=== PATIENT | male | born 1965 | race Hispanic/Latino ===

== ENCOUNTER 2016-07-31 19:29 | Observation (INO) | payer MEDICAID ==
[2016-07-31 19:50] VITALS: BP 121/76; PULSE 74; RESP 16; TEMP 98.2; O2SAT 100
--- NOTE | 2016-07-31 21:14 | ED PDOC ---
HPI: Psych/Substance Abuse Time Seen by Provider: 07/31/16 20:05 Chief Complaint (Nursing): Psychiatric Evaluation Chief Complaint (Provider): SI/HI History Per: Patient History/Exam Limitations: no limitations Onset/Duration Of Symptoms: Days (x4 months), Worse Since (today) Current Symptoms Are (Timing): Still Present Associated Symptoms: Suicidal Thoughts, Other (homicidal thoughts, no plan). denies: Suicidal Plan Involuntary Hold By: None Additional Complaint(s): Reji Espinal is a 50 year old male, with a psychiatric history inclusive of anxiety, delusion disorder and asperger syndrome per previous history, who self- presents to the ED on 07/31/16 for the evaluation of both suicidal and homicidal ideation that the patient reports he has experienced x4 months but became acutely worse today. Patient denies plan but reports feeling as if he is under constant surveillance. He admits a noncompliance with his medications but is not aware of any official psychiatric diagnoses. Denies alcohol/drug use. PMD: none Past Medical History Reviewed: Historical Data, Nursing Documentation, Vital Signs Vital Signs: Last Vital Signs Temp 98.2 F 07/31/16 19:45 Pulse 74 07/31/16 19:45 Resp 16 07/31/16 19:45 BP 121/76 07/31/16 19:45 Pulse Ox 100 07/31/16 19:45 - Medical History PMH: Anxiety, HTN (untreated) Denies: Diabetes, Hepatitis, HIV, Chronic Kidney Disease, Seizures, Sexually Transmitted Disease Other PMH: delusion disorder, asperger's disorder - Surgical History Surgical History: No Surg Hx - Family History Family History: States: Unknown Family Hx - Social History Alcohol: None Drugs: Denies - Home Medications Home Medications: Ambulatory Orders Medication Instructions Recorded ALPRAZolam [Xanax] 0.25 mg PO Q8 PRN #0 tab 06/28/16 Aspirin [Ecotrin] 81 mg PO DAILY tabec 06/28/16 Nicotine 21 mg/24 hr [Nicoderm Cq] 1 patch TD DAILY #28 patch 06/28/16 clonazePAM [Klonopin] 0.5 mg PO HS #30 tab 06/28/16 risperiDONE [RisperDAL] 0.5 mg PO BID #60 tab 06/28/16 - Allergies Allergies/Adverse Reactions: Allergies Allergy/AdvReac Type Severity Reaction Status Date / Time No Known Allergies Allergy Verified 07/31/16 19:44 Review of Systems ROS Statement: Except As Marked, All Systems Reviewed And Found Negative Psych: Positive for: Psychosis (paranoia (feels that he is under constant surveillance)), Suicidal ideation (no plan), Other (homicidal ideaiton, no plan) Physical Exam - Reviewed Nursing Documentation Reviewed: Yes Vital Signs Reviewed: Yes - Physical Exam Appears: Positive for: Non-toxic, In Acute Distress (acute psychiatric distress) Head Exam: Positive for: ATRAUMATIC, NORMOCEPHALIC Skin: Positive for: Normal Color, Warm, Dry Eye Exam: Positive for: Normal appearance, PERRL Cardiovascular/Chest: Positive for: Regular Rate, Rhythm. Negative for: Murmur Respiratory: Positive for: Normal Breath Sounds. Negative for: Respiratory Distress Neurologic/Psych: Positive for: Alert, Oriented, Mood/Affect (very agitated/ uncooperative) - Laboratory Results Result Diagrams: 07/31/16 21:15 07/31/16 21:15 - ECG O2 Sat by Pulse Oximetry: 100 (RA) Pulse Ox Interpretation: Normal Medical Decision Making Medical Decision Makin:05 Initial Impression: suicidal/homicidal ideation As patient's agitation presents a danger to both himself and ED staff patient will be placed in 4 point restraints and be given both Ativan 2mg IM and Haldol 5mg IM for relief of acute psychiatric distress. 1:1 Observation placed. Initial Plan: * Labs * Acetaminophen * Salicylate * Alcohol Serum * Urinalysis * Urine Drug Screen * Reevaluation 20:45 Patient is now calm and sleeping comfortably in ED. Physical restraints have been removed. 22:03 Patient will be placed into ED Observation secondary to administered medications. 2355: Patient seen and evaluated by crisis and will be discharged in the AM. Diagnosis is bipolar disorder as per Dr. Akbar. 0247: Patient feels better and will be discharged home at this time. stable gait. pt states feels fine. Scribe Attestation: Documented by Vandana Khan and Renée Valenzuela acting as scribes for Pam Salgado MD. Provider Scribe Attestation: All medical record entries made by the Scribe were at my direction and personally dictated by me. I have reviewed the chart and agree that the record accurately reflects my personal performance of the history, physical exam, medical decision making, and the department course for this patient. I have also personally directed, reviewed, and agree with the discharge instructions and disposition. ED OBSERVATION Date of observation admission: 07/31/16 Time of observation admission: 22:03 - Observation admission statement Patient is being placed in observation because:: Secondary to administered antipsychotic medications. - Goals of Observation Goals of observation are:: Pending eventual Crisis Evaluation, reevaluation and final disposition. Disposition - Clinical Impression Clinical Impression: Bipolar disorder - Patient ED Disposition Is Patient to be Admitted: No Counseled Patient/Family Regarding: Studies Performed, Diagnosis, Need For Followup - Disposition Disposition: Routine/Home Disposition Time: 23:55 Condition: GOOD
[2016-07-31 21:34] LABS: BASO # 0.1 K/uL (0.0-0.2); EOS # 0.3 K/uL (0.0-0.7); EOS % 4.2 % (0.0-4.0); HEMATOCRIT 45.9 % (35.0-51.0); LYMPH # 2.7 K/uL (1.0-4.3); LYMPH % 34.1 % (20.0-40.0); MEAN CELL VOLUME 98.3 fl (80.0-94.0); MEAN CORPUSCULAR HEMOGLOBIN 32.6 pg (27.0-31.0); MEAN CORPUSCULAR HGB CONC 33.2 g/dL (33.0-37.0); MEAN PLATELET VOLUME 7.1 fl (7.2-11.7); MONO % 12.6 % (0.0-10.0); NEUT # 3.7 K/uL (1.8-7.0); NEUT % 48.1 % (50.0-75.0); NRBC % 0.1 % (0.0-0.0); RED CELL DISTRIBUTION WIDTH 13.1 % (11.5-14.5); WHITE BLOOD COUNT 7.8 K/uL (4.8-10.8)
[2016-07-31 21:52] LABS: RBC URINE < 1 /hpf (0-3); URINE BILIRUBIN NEGATIVE (NEGATIVE); URINE BLOOD NEGATIVE (NEGATIVE); URINE COLOR STRAW (YELLOW); URINE GLUCOSE (UA) NEG (Normal); URINE KETONE NEGATIVE (NEGATIVE); URINE LEUKOCYTE ESTERASE NEG Leu/uL (Negative); URINE PROTEIN NEGATIVE (NEGATIVE); URINE UROBILINOGEN 0.2-1.0 mg/dL (0.2-1.0); WBC URINE < 1 /hpf (0-5)
[2016-07-31 21:59] LABS: ALB/GLOB RATIO 1.5 (1.0-2.1); ALKALINE PHOSPHATASE 52 U/L (38-126); ALT/SGPT 32 U/L (21-72); AST/SGOT 40 U/L (17-59); BILIRUBIN,TOTAL 0.4 mg/dl (0.2-1.3); BLOOD UREA NITROGEN 15 mg/dl (9-20); CALCIUM 9.2 mg/dL (8.4-10.2); CARBON DIOXIDE 25 mmol/L (22-30); CHLORIDE 105 mmol/L (98-107); GFR AFRICAN-AMERICAN > 60; GLUCOSE,RANDOM 93 mg/dL (75-110); POTASSIUM 4.1 MMOL/L (3.6-5.0); SODIUM 144 mmol/l (132-148); TOTAL PROTEIN 6.4 G/DL (6.3-8.2)
[2016-07-31 22:36] LABS: ALCOHOL SERUM 143 mg/dl (0-10)
== END 2016-08-01 02:42 | disposition home or self-care (01) ==
LOC: H.ER 19:29 → H.EROBSV 20:40
PROVIDERS: ADMIT Emergency Medicine; ATTEND Emergency Medicine
DX: F31.9 Bipolar disorder, unspecified (principal); F84.5 Asperger's syndrome; I10 Essential (primary) hypertension; R45.850 Homicidal ideations; R45.851 Suicidal ideations; Z78.1 Physical restraint status; F22 Delusional disorders; F41.9 Anxiety disorder, unspecified

== ENCOUNTER 2017-05-26 23:31 | Emergency (ER) | payer MEDICAID ==
[2017-05-27 00:43] VITALS: BP 133/85; PULSE 90; RESP 16; TEMP 98.1; O2SAT 96
== END 2017-05-27 00:50 | disposition left against medical advice (07) ==
LOC: H.ER 23:31
DX: Z02.89 Encounter for other administrative examinations (principal)

== ENCOUNTER 2017-06-17 07:04 | Inpatient (IN) | payer MEDICAID, OTHER ==
--- NOTE | 2017-06-17 07:49 | ED PDOC ---
HPI: Psych/Substance Abuse Time Seen by Provider: 06/17/17 07:28 Chief Complaint (Nursing): Psychiatric Evaluation Chief Complaint (Provider): I need to sleep History Per: Patient History/Exam Limitations: no limitations Onset/Duration Of Symptoms: Gradual Current Symptoms Are (Timing): Still Present Modifying Factor(s): Alcohol Severity: Moderate Associated Symptoms: Anxiety, Paranoia Additional Complaint(s): 51yo male c/o inability to sleep, racing thoughts, wants "check himself in". Admits to alcohol use last drink last night. Denies suicidal or homicidal thoughts. Past Medical History Reviewed: Historical Data, Nursing Documentation, Vital Signs Vital Signs: Last Vital Signs Temp 98.1 F 06/17/17 07:34 Pulse 98 H 06/17/17 07:34 Resp 16 06/17/17 07:34 BP 152/93 H 06/17/17 07:34 Pulse Ox 97 06/17/17 07:34 - Medical History PMH: Anxiety, HTN (untreated) Denies: Diabetes, Hepatitis, HIV, Chronic Kidney Disease, Seizures, Sexually Transmitted Disease - Family History Family History: States: Unknown Family Hx - Home Medications Home Medications: Ambulatory Orders Medication Instructions Recorded ALPRAZolam [Xanax] 0.25 mg PO Q8 PRN #0 tab 06/28/16 Aspirin [Ecotrin] 81 mg PO DAILY tabec 06/28/16 Nicotine 21 mg/24 hr [Nicoderm Cq] 1 patch TD DAILY #28 patch 06/28/16 clonazePAM [Klonopin] 0.5 mg PO HS #30 tab 06/28/16 risperiDONE [RisperDAL] 0.5 mg PO BID #60 tab 06/28/16 - Allergies Allergies/Adverse Reactions: Allergies Allergy/AdvReac Type Severity Reaction Status Date / Time No Known Allergies Allergy Verified 07/31/16 19:44 Review of Systems ROS Statement: Except As Marked, All Systems Reviewed And Found Negative Constitutional: Negative for: Fever, Chills Respiratory: Negative for: Cough, Shortness of Breath Gastrointestinal: Negative for: Nausea, Vomiting Genitourinary Male: Negative for: Dysuria, Frequency Neurological: Positive for: Dizziness. Negative for: Weakness, Numbness Psych: Positive for: Anxiety Physical Exam - Reviewed Nursing Documentation Reviewed: Yes Vital Signs Reviewed: Yes - Physical Exam Appears: Positive for: Non-toxic, No Acute Distress Head Exam: Positive for: ATRAUMATIC, NORMAL INSPECTION, NORMOCEPHALIC Skin: Positive for: Normal Color, Warm, DRY Eye Exam: Positive for: EOMI, Normal appearance, PERRL ENT: Positive for: Normal ENT Inspection Neck: Positive for: Normal, Painless ROM Cardiovascular/Chest: Positive for: Regular Rate, Rhythm Respiratory: Positive for: CNT, Normal Breath Sounds Gastrointestinal/Abdominal: Positive for: Soft. Negative for: Tenderness Back: Positive for: Normal Inspection Extremity: Positive for: Normal ROM Neurologic/Psych: Positive for: Alert, Oriented. Negative for: Motor/Sensory Deficits - ECG O2 Sat by Pulse Oximetry: 97 Disposition - Disposition
[2017-06-17 08:05] LABS: BASO # 0.1 K/uL (0.0-0.2); EOS # 0.1 K/uL (0.0-0.7); EOS % 0.6 % (0.0-4.0); HEMOGLOBIN 15.7 g/dL (12.0-18.0); LYMPH # 2.2 K/uL (1.0-4.3); LYMPH % 21.7 % (20.0-40.0); MEAN CELL VOLUME 94.8 fl (80.0-94.0); MEAN CORPUSCULAR HEMOGLOBIN 33.1 pg (27.0-31.0); MEAN PLATELET VOLUME 6.9 fl (7.2-11.7); MONO % 10.2 % (0.0-10.0); NEUT # 6.6 K/uL (1.8-7.0); NEUT % 66.5 % (50.0-75.0); RBC 4.75 Mil/uL (4.40-5.90); RED CELL DISTRIBUTION WIDTH 13.5 % (11.5-14.5)
[2017-06-17 08:16] LABS: ALB/GLOB RATIO 1.2 (1.0-2.1); ALBUMIN 3.3 g/dL (3.5-5.0); ALT/SGPT 72 U/L (21-72); AST/SGOT 65 U/L (17-59); BLOOD UREA NITROGEN 22 mg/dl (9-20); GFR AFRICAN-AMERICAN > 60; GFR NON-AFRICAN AMERICAN > 60
[2017-06-17 08:24] LABS: BARBITURATES, UR NEGATIVE (NEGATIVE); BENZODIAZEPINES, UR NEGATIVE (NEGATIVE); OPIATES, UR NEGATIVE (NEGATIVE); PHENCYCLIDINE, UR NEGATIVE (NEGATIVE)
--- NOTE | 2017-06-17 10:48 | RAD ---
HISTORY: Rule out infiltrate COMPARISON: Comparison chest 06/18/2016 FINDINGS: LUNGS: No active pulmonary disease. PLEURA: No significant pleural effusion identified, no pneumothorax apparent. CARDIOVASCULAR: Normal. OSSEOUS STRUCTURES: No significant abnormalities. VISUALIZED UPPER ABDOMEN: Normal. OTHER FINDINGS: None. IMPRESSION: No acute infiltrates.
[2017-06-17 11:02] LABS: URINE BACTERIA RARE (<OCC); URINE BILIRUBIN NEGATIVE (NEGATIVE); URINE BLOOD NEGATIVE (NEGATIVE); URINE CLARITY SLIGHTY-CLOUDY (Clear); URINE COLOR YELLOW (YELLOW); URINE GLUCOSE (UA) NEG (Normal); URINE LEUKOCYTE ESTERASE NEG Leu/uL (Negative); URINE NITRATE NEGATIVE (NEGATIVE); URINE PROTEIN NEGATIVE (NEGATIVE); URINE UROBILINOGEN 0.2-1.0 mg/dL (0.2-1.0)
[2017-06-17 11:35] VITALS: O2SAT 99
--- NOTE | 2017-06-17 13:23 | CARD ---
APPROVED REPORT EKG Measurement Heart [id number] <Conclusion> Normal sinus rhythm Left anterior fascicular block Abnormal ECG
[2017-06-17] MEDS ORDERED: DiphenhydrAMINE 50 mg/ml Inj IM PRN (13:32)
[2017-06-17] MEDS ORDERED: Magnesium Hydroxide Susp 30 ml UD PO PRN (13:32)
[2017-06-17] MEDS ORDERED: Alum-Mag Hydrox-Simethicone Susp (30 mL) PO PRN (13:32)
--- NOTE | 2017-06-17 13:53 | PCM.BM ---
<Tasia Santos - Last Filed: 06/17/17 13:53> Treatment Plan Problems - Problems identified on initial assessmt Altered Sleep Patterns Date Initiated: 06/17/17 Time Initiated: 13:52 Assessment reference: NA Status: Active Delusions Date Initiated: 06/17/17 Time Initiated: 13:52 Assessment reference: NA Status: Active Medication nonadherence Date Initiated: 06/17/17 Date resolved: 06/17/17 Assessment reference: NA Status: Active Treatment assets and liabiliti Patient Assests: ADL independent, good support system Patient Liabilities: other (altered thought processeses, emotional issues) - Milieu Protocol Maintain good personal hygiene: daily Encourage regular showers, daily Remind patient to perform daily oral care, daily Assist patient to perform ADL's Maintain personal safety: daily Educate patient to report safety concerns to staff, daily Monitor environment for contraband/sharps, every shift Educate patient to report safety concerns to staff, every shift Monitor environment for contraband/sharps Medication safety: Monitor for expected outcome, potential side effects: daily, every shift, Assess barriers to learning: daily, every shift, Assess readiness for medication education: daily, every shift <Lex Osborn - Last Filed: 06/20/17 07:43> Family Contact Family involvement: Famliy/SO not involved Family contact: Patient declines to allow family contact at present Family contact name: Pt denied. - Goals for Treatment Patient goals for treatment: Pt lacks all insight into his mental illness. Pt has signed a 48 hour notice and expects to be discharged. Discharge/Continuing Care - Education Needs Education Needs: Patient Medication, Patient Diagnosis/Disease Process, Patient Personal Hygiene/Grooming, Patient Aftercare Safety Plan - Discharge Discharge Criteria: Tolerates medication w/o severe side effects, Free of paranoid thoughts, Free of agitation, Normal sleep pattern, Ability to care for self, Reduction of target symptoms Discharge to:: Home - Additional Comments 06/20/17 07:36 Pt lacks all insight and agreed to disagree with the treatment team. Pt reported that he would stay until his 48 hours and try to remain patient and calm. - Treatment Team Participation Discussed with Family/SO: No Was Patient/Family/SO present at Treatment Team Meeting: Yes
--- NOTE | 2017-06-17 14:06 | PCM.PSYCH ---
Initial Psychiatric Evaluation - Initial Psychiatric Evaluation Legal Status: Capacity Chief Complaint (in patient's own words): I did not sleep for four days Patient's Reaction to Hospitalization: pt with previous diagnosis of delusional disorder paranoid type and asperger , last hospitalized in 2012 , reportedly non compliant with medications and follow up pt presented to ER stating that he is requesting admission as he is exhausted not sleeping for at least four days due to conflict with his neighbours, pt reported that this has been an on going situation on evaluation pt guarded with disorganized thought process, denied S/H I denied perceptual disturbances collateral information obtained in ER History of Present Illness and Precipitating Events: pt with previous diagnosis of delusional disorder paranoid type and asperger , last hospitalized in 2012 , reportedly non compliant with medications and follow up pt presented to ER stating that he is requesting admission as he is exhausted not sleeping for at least four days due to conflict with his neighbours, pt reported that this has been an on going situation on evaluation pt guarded with disorganized thought process, denied S/H I denied perceptual disturbances collateral information obtained in ER electronic equipment trades worker contacted patient friend for collateral information, Mr Mayfield was guarded and didn't want to be specific. Mr. Mayfield stated that patient need to be seen by a psychiatrist, confirmed that patient have major problems with his neighbors, he spoke with patient a few days ago, as per Mr. Mayfield patient don't have a history of suicidal ideations. Current Medications: Active Medications Generic Name Dose Route Start Last Admin Trade Name Freq PRN Reason Stop Dose Admin Acetaminophen 650 mg 06/17/17 13:32 Tylenol 325mg Tab PO Q4 PRN Pain, moderate (4-7) Al Hydrox/Mg Hydrox/Simethicone 30 ml 06/17/17 13:32 Maalox Plus 30 Ml PO Q4 PRN Dyspepsia Diphenhydramine HCl 50 mg 06/17/17 13:32 Benadryl IM Q6 PRN Extrapyramidal S/S Unable PO Diphenhydramine HCl 50 mg 06/17/17 13:32 Benadryl PO Q6 PRN Extrapyramidal Symptoms Haloperidol 5 mg 06/17/17 13:32 Haldol PO Q4 PRN Agitation Haloperidol Lactate 5 mg 06/17/17 13:32 Haldol IM Q4 PRN Agitation, Unable to Take PO Lorazepam 2 mg 02/12/18 13:32 Ativan IM Q4 PRN Anxiety/Agitation,Unable PO Lorazepam 2 mg 06/17/17 13:32 Ativan PO Q4 PRN Anxiety/Agitation Magnesium Hydroxide 30 ml 06/17/17 13:32 Milk Of Magnesia PO HS PRN Constipation Risperidone 0.5 mg 06/17/17 17:00 Risperdal M-Tab PO BID [place] Trazodone HCl 100 mg 06/17/17 22:00 Desyrel PO HS [place] Past Psychiatric History - Past Psychiatric History Explanation of prior treatment: ONE PREVIOUS HOSPITALIZATION AT [facility] History of ETOH/Drug Use: denied Pertinent Medical Hx (Current Medical&Sleep Prob, Allergies): Allergies Allergy/AdvReac Type Severity Reaction Status Date / Time No Known Allergies Allergy Verified 07/31/16 19:44 Aspirin [Ecotrin] 81 mg PO DAILY 06/17/17 Sildenafil Citrate [Viagra] 50 mg PO DAILY PRN 06/17/17 Sildenafil Citrate [Viagra] 100 mg PO DAILY PRN 06/17/17 [place] Wort [Eva's Wort] 600 mg PO DAILY 06/17/17 Mental Status Examination - Personal Presentation Personal Presentation: Looks stated age Additional comments: uncooperative guarded - Affect Affect: Constricted - Motor Activity Motor Activity: Calm, Psychomotor Agitation - Reliability in Providing Information Reliability in Providing Information: Poor, due to alteration in thoughts, Poor , due to altered mood - Speech Speech: Disorganized - Mood Mood: Anxious - Formal Thought Process Formal Thought Process: Delusions, Paranoia Additional comments: delusions of persecution - Hallucinations/Delusions Additional comments: pt denied perceptual disturbances, non elicited - Obsessions/Compulsions Obsessions: No Compulsions: No - Cognitive Functions Judgement: Imparied, as evidence by: Poor judgement, Imparied, as evidence by: Lack of insight into illness - Strength & Assets Inventory Strength & Assets Inventory: Life experience - Limitations Additional comments: non compliance DSM 5 DX - DSM 5 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
[2017-06-17 14:47] LABS: HDL CHOLESTEROL 45 MG/DL (30-70)
[2017-06-17 15:02] LABS: LDL CHOLESTEROL < 30 mg/dL (0-129)
[2017-06-17] MEDS: Risperidone M tab 0.5MG PO SCH ×2 (19:10→20:19)
--- NOTE | 2017-06-17 20:18 | CP.PCM.CON ---
History of Present Illness - History of Present Illness History of Present Illness: History taken by records and partially by patient who did not cooperate to the interview. 57 yo ,m, PMhx/o HTN, paranoic schizophrenia who was admitted to psych unit by voluntary admission after he admits to be with inability to sleep for several nights. Patient reports feeling fine , denies visual or auditory hallucinations. Patient denies any fever, cough, chest pain, palpitation, n, v, abd pain. Patient reports that he is the Dr and he changes the rules. He gets agitated during the interview and leave the room upset. Rest of the information taken by prior admissions PMH: Hypertension PSH: Ear plastic surgery All: [facility]: Pt is adopted, does not know biological health history. Soc: Lives at home. Admits to smoking 1pk a day for 23 years. Admits to excessive alcohol use, 5 drinks to aid with sleep on a bi-weekly basis. Denies illicit drug use. Meds. Asprin 81mg, Xanax prn Review of Systems - Constitutional Constitutional: As Per HPI - EENT Eyes: As Per HPI - Cardiovascular Cardiovascular: As Per HPI - Respiratory Respiratory: As Per HPI - Gastrointestinal Gastrointestinal: As Per HPI Past Patient History - Tetanus Immunizations Tetanus Immunization: Unknown - Past Social History Smoking Status: Unknown If Ever Smoked - CARDIAC Hx Cardiac Disorders: Yes (HTN) - PULMONARY Hx Respiratory Disorders: No - NEUROLOGICAL Hx Neurological Disorder: No - HEENT Hx HEENT Problems: No - RENAL Hx Chronic Kidney Disease: No - ENDOCRINE/METABOLIC Hx Endocrine Disorders: No - HEMATOLOGICAL/ONCOLOGICAL Hx Human Immunodeficiency Virus (HIV): No - INTEGUMENTARY Hx Dermatological Problems: No - MUSCULOSKELETAL/RHEUMATOLOGICAL Hx Musculoskeletal Disorders: No - GASTROINTESTINAL Hx Gastrointestinal Disorders: No - GENITOURINARY/GYNECOLOGICAL Hx Genitourinary Disorders: No - PSYCHIATRIC Hx Anxiety: Yes Hx Substance Use: No - SURGICAL HISTORY Hx Surgeries: No Other/Comment: Ear splastic surgery - ANESTHESIA Hx Anesthesia: No Meds Allergies/Adverse Reactions: Allergies Allergy/AdvReac Type Severity Reaction Status Date / Time No Known Allergies Allergy Verified 07/31/16 19:44 - Medications Medications: Current Medications Acetaminophen (Tylenol 325mg Tab) 650 mg PO Q4 PRN PRN Reason: Pain, moderate (4-7) Al Hydrox/Mg Hydrox/Simethicone (Maalox Plus 30 Ml) 30 ml PO Q4 PRN PRN Reason: Dyspepsia Diphenhydramine HCl (Benadryl) 50 mg IM Q6 PRN PRN Reason: Extrapyramidal S/S Unable PO Diphenhydramine HCl (Benadryl) 50 mg PO Q6 PRN PRN Reason: Extrapyramidal Symptoms Haloperidol (Haldol) 5 mg PO Q4 PRN PRN Reason: Agitation Haloperidol Lactate (Haldol) 5 mg IM Q4 PRN PRN Reason: Agitation, Unable to Take PO Lorazepam (Ativan) 2 mg IM Q4 PRN PRN Reason: Anxiety/Agitation,Unable PO Lorazepam (Ativan) 2 mg PO Q4 PRN PRN Reason: Anxiety/Agitation Magnesium Hydroxide (Milk Of Magnesia) 30 ml PO HS PRN PRN Reason: Constipation Risperidone (Risperdal M-Tab) 0.5 mg PO BID [facility] Last Admin: 06/17/17 19:10 Dose: Not Given Trazodone HCl (Desyrel) 100 mg PO [facility] Physical Exam - Constitutional Appears: No Acute Distress - Head Exam Head Exam: ATRAUMATIC, NORMOCEPHALIC - Eye Exam Eye Exam: Normal appearance - Respiratory Exam Additional comments: does not cooperate with Physical exam - Cardiovascular Exam Additional comments: does not cooperate with Physical exam - GI/Abdominal Exam Additional comments: does not cooperate with Physical exam - Extremities Exam Extremities exam: Positive for: normal inspection Additional comments: does not cooperate with Physical exam - Psychiatric Exam Psychiatric exam: Agitated, Anxious - Skin Skin Exam: Normal Color Results - Vital Signs Recent Vital Signs: Last Vital Signs Temp 98.2 F 06/17/17 17:00 Pulse 82 06/17/17 17:00 Resp 18 06/17/17 17:00 BP 138/67 06/17/17 17:00 Pulse Ox 99 06/17/17 11:34 - Labs Result Diagrams: 06/17/17 07:57 06/17/17 07:57 Labs: Laboratory Results - last 24 hr 06/17/17 06/17/17 06/17/17 07:57 07:57 07:58 WBC 10.0 RBC 4.75 Hgb 15.7 Hct 45.0 MCV 94.8 H D MCH 33.1 H MCHC 35.0 RDW 13.5 Plt Count 260 MPV 6.9 L Neut % (Auto) 66.5 Lymph % (Auto) 21.7 [place] % (Auto) 10.2 H Eos % (Auto) 0.6 Baso % (Auto) 1.0 Neut # (Auto) 6.6 Lymph # (Auto) 2.2 [place] # (Auto) 1.0 H Eos # (Auto) 0.1 Baso # (Auto) 0.1 Sodium 133 Potassium 4.0 Chloride 96 L Carbon Dioxide 25 Anion Gap 16 BUN 22 H Creatinine 1.1 Est GFR ( Amer) > 60 Est GFR (Non-Af Amer) > 60 Random Glucose 139 H Hemoglobin A1c Calcium 9.0 Total Bilirubin 0.8 AST 65 H ALT 72 D Alkaline Phosphatase 75 Total Protein 6.1 L Albumin 3.3 L Globulin 2.8 Albumin/Globulin Ratio 1.2 Triglycerides Cholesterol LDL Cholesterol Direct HDL Cholesterol Urine Color Urine Clarity Urine pH Ur Specific [place] Urine Protein Urine Glucose (UA) Urine Ketones Urine Blood Urine Nitrate Urine Bilirubin Urine Urobilinogen Ur Leukocyte Esterase Urine RBC (Auto) Urine Microscopic WBC Urine Bacteria Urine Opiates Screen Negative Urine Methadone Screen Negative Ur Barbiturates Screen Negative Ur Phencyclidine Scrn Negative Ur Amphetamines Screen Negative U Benzodiazepines Scrn Negative U Oth Cocaine Metabols Negative U Cannabinoids Screen Negative Alcohol, Quantitative < 10 06/17/17 06/17/17 06/17/17 10:35 13:30 13:30 WBC RBC Hgb Hct MCV MCH MCHC RDW Plt Count MPV Neut % (Auto) Lymph % (Auto) [place] % (Auto) Eos % (Auto) Baso % (Auto) Neut # (Auto) Lymph # (Auto) [place] # (Auto) Eos # (Auto) Baso # (Auto) Sodium Potassium Chloride Carbon Dioxide Anion Gap BUN Creatinine Est GFR ( Amer) Est GFR (Non-Af Amer) Random Glucose Hemoglobin A1c 5.7 Calcium Total Bilirubin AST ALT Alkaline Phosphatase Total Protein Albumin Globulin Albumin/Globulin Ratio Triglycerides 1063 H Cholesterol 232 H LDL Cholesterol Direct < 30 HDL Cholesterol 45 Urine Color Yellow Urine Clarity Slighty-cloudy Urine pH 6.0 Ur Specific [place] 1.016 Urine Protein Negative Urine Glucose (UA) Neg Urine Ketones Negative Urine Blood Negative Urine Nitrate Negative Urine Bilirubin Negative Urine Urobilinogen 0.2-1.0 Ur Leukocyte Esterase Neg Urine RBC (Auto) 1 Urine Microscopic WBC 2 Urine Bacteria Rare Urine Opiates Screen Urine Methadone Screen Ur Barbiturates Screen Ur Phencyclidine Scrn Ur Amphetamines Screen U Benzodiazepines Scrn U Oth Cocaine Metabols U Cannabinoids Screen Alcohol, Quantitative Assessment & Plan - Assessment and Plan (Free Text) Plan: 50 yo ,m, PMhx/o HTN, schizophrenia paranoid admitted for delusional disorder paranoid type Assessment /Plan 1) Delusional disorder paranoid type -per psychiatrist -c/w Risperidone, Trazodone 2) Hypertension stable will monitor 3) Hypertriglyceridemia -Lipid profile: Triglycerides 1063 Col 232 -High risk of Acute Pancreatitis. - Start Gemfibrozil 600 mg BID 30 min before breakfast, 30 min before dinner. -(does not do interation with rest of medications. renal function normal.) 4) DVT Prophylaxis -Patient able to ambulate in the unit.
[2017-06-18 06:43] LABS: BASO # 0.1 K/uL (0.0-0.2); BASO % 0.9 % (0.0-2.0); EOS # 0.1 K/uL (0.0-0.7); EOS % 0.9 % (0.0-4.0); HEMOGLOBIN 14.7 g/dL (12.0-18.0); LYMPH # 1.9 K/uL (1.0-4.3); MEAN CELL VOLUME 95.6 fl (80.0-94.0); MEAN CORPUSCULAR HEMOGLOBIN 32.9 pg (27.0-31.0); MEAN CORPUSCULAR HGB CONC 34.5 g/dL (33.0-37.0); MONO # 0.8 K/uL (0.0-0.8); MONO % 11.1 % (0.0-10.0); NEUT # 4.3 K/uL (1.8-7.0); NEUT % 60.1 % (50.0-75.0); NRBC % 0.1 % (0.0-0.0); RBC 4.45 Mil/uL (4.40-5.90); RED CELL DISTRIBUTION WIDTH 13.5 % (11.5-14.5); WHITE BLOOD COUNT 7.1 K/uL (4.8-10.8)
[2017-06-18 06:54] LABS: MEAN PLATELET VOLUME 6.8 fl (7.2-11.7)
[2017-06-18] MEDS: Risperidone M tab 0.5MG PO SCH ×2 (09:49→17:58)
--- NOTE | 2017-06-18 11:06 | PCM.PYCHPN ---
Psychiatric Progress Note - Psychiatric Progress Note Patient seen today, length of contact: pt evaluated discussed with team chart reviewed Patient Chief Complaint: I will not take risperidone you are giving me the wrong medicine,or I wnat to leave , they are giving me the wrong diagnosis, Problems Identified/Issues Discussed: pt on evaluation arguing about his medications, refusing to take the antipsychotic refusing all his other medications, pt showing no insight into his illness, verbally threatening towards staff , disorganised tought process with grandiose delusions, delusions of persecution towards his neighbours stating he currently suffers from PTSD because of their harrasement to him pt refusing to attend groups or participate in treatment , denied suicidal or homicidal ideations, denied command hallucinations Medical Problems: ONE PREVIOUS HOSPITALIZATION AT [facility] DSM 5 Symptoms Update: delusional disorder paranoid type autistic spectrum Medication Change: No Medical Record Reviewed: Yes Mental Status Examination - Cognitive Function Orientation: Person, Place Memory: Intact Attention: WNL Concentration: WNL Association: WNL Fund of Knowledge: WNL Decription of patient's judgement and insights: impaired insight poor judgment - Mood Mood: Anxious - Affect Affect: Constricted - Speech Speech: Appropriate - Formal Thought Process Formal Thought Process: Delusions, Paranoia Psychotic Thoughts and Behaviors: pt presenting with paranoid delusions towards his neighbours - Suicidal Ideation Suicidal Ideation: No - Homicidal Ideation Homicidal Ideation: No Goal/Treatment Plan - Goal/Treatment Plan Need for Continued Stay: Discharge may exacerbated symptoms Progress Toward Problem(s) and Goals/Treatment Plan: continue with risperidone 0.5mg bid trazdone 100mgqhs pt has no insight into his illness requesting to be discharged and refusing his medications pt will be referred for screening for involuntary admission for further stabilization
--- NOTE | 2017-06-19 08:54 | PCM.PYCHPN ---
Psychiatric Progress Note - Psychiatric Progress Note Patient seen today, length of contact: pt evaluated discussed with team chart reviewed Patient Chief Complaint: I have to leave now You must let me go Problems Identified/Issues Discussed: pt on evaluation loud angry threatening verbally and physically banging on the wall demanding to be discharged in the moment, pt yelling in the hallway, verbally abusive towards staff, pt floridaly paranoid and presenting with poor impulse control , explosive and unable to control his anger pt continues to be paranoid expressing anger and frustration towards his neighbours sstating they are the reason he is confined here and that they have induced his posttraumatic symptoms at the current mental status patient is definitely danger to others, and possibly to self As per pt outpatient treatment team pt has not attended treatment for about two months and has been decompensating\ pt at current mental staus completely refusing medications nd treatment could be danger to self or others, would benifit from inpatient involuntary admission for stabilization Medical Problems: ONE PREVIOUS HOSPITALIZATION AT [facility] DSM 5 Symptoms Update: delusional disorder paranoid type Medication Change: No Medical Record Reviewed: Yes Mental Status Examination - Cognitive Function Orientation: Person, Place Memory: Intact Attention: WNL Association: WNL Fund of Knowledge: [facility] Decription of patient's judgement and insights: impaired insight into illness and need for treatment - Mood Mood: Anxious Additional comments: angry - Affect Affect: Constricted Additional comments: angry irritable hypervigalent threatening - Speech Speech: Soft - Formal Thought Process Formal Thought Process: Delusions, Paranoia Psychotic Thoughts and Behaviors: pt presenting with paranoid delusions towards his neighbours - Suicidal Ideation Suicidal Ideation: No - Homicidal Ideation Homicidal Ideation: Yes Plan: pt threatening towards staff, stating they are incomptent Goal/Treatment Plan - Goal/Treatment Plan Need for Continued Stay: Discharge may exacerbated symptoms Progress Toward Problem(s) and Goals/Treatment Plan: pt has no insight into his illness requesting to be discharged and refusing his medications pt is angry threatening irritable explosive pt will be referred for rescreening for involuntary admission for further stabilization, he was declined by screening services yesterday will do doctor to doctor review to further diiscuss need for involuntary admission for patient
--- NOTE | 2017-06-19 09:42 | CP.PCM.PN ---
Subjective - Date & Time of Evaluation Date of Evaluation: 06/19/17 Time of Evaluation: 08:50 - Subjective Subjective: pt seen and examined in dining room. Pt was "annoyed" with persistent questioning and with "being held" at the hospital. Pt was able to answer questions and reports that elevated bp was 2/2 to not being able to go home. He insists no complaints 2/2 to htn. denies: cp/sob/osman Objective - Vital Signs/Intake and Output Vital Signs (last 24 hours): Temp Pulse Resp BP Pulse Ox 97.9 F 84 18 138/93 H 99 06/19/17 09:00 06/19/17 09:00 06/19/17 09:00 06/19/17 09:00 06/17/17 11:34 - Medications Medications: Current Medications Acetaminophen (Tylenol 325mg Tab) 650 mg PO Q4 PRN PRN Reason: Pain, moderate (4-7) Al Hydrox/Mg Hydrox/Simethicone (Maalox Plus 30 Ml) 30 ml PO Q4 PRN PRN Reason: Dyspepsia Diphenhydramine HCl (Benadryl) 50 mg IM Q6 PRN PRN Reason: Extrapyramidal S/S Unable PO Diphenhydramine HCl (Benadryl) 50 mg PO Q6 PRN PRN Reason: Extrapyramidal Symptoms Last Admin: 06/17/17 20:20 Dose: 50 mg Diphenhydramine HCl (Benadryl) 50 mg PO HS PRN PRN Reason: Sleep Last Admin: 06/18/17 22:03 Dose: 50 mg Gemfibrozil (Lopid) 600 mg PO BIDAC ALBAN Last Admin: 06/18/17 17:58 Dose: Not Given Haloperidol (Haldol) 5 mg PO Q4 PRN PRN Reason: Agitation Haloperidol Lactate (Haldol) 5 mg IM Q4 PRN PRN Reason: Agitation, Unable to Take PO Lorazepam (Ativan) 2 mg IM Q4 PRN PRN Reason: Anxiety/Agitation,Unable PO Lorazepam (Ativan) 1 mg PO TID PRN PRN Reason: Anxiety Last Admin: 06/18/17 09:48 Dose: 1 mg Magnesium Hydroxide (Milk Of Magnesia) 30 ml PO HS PRN PRN Reason: Constipation Nicotine (Nicoderm Cq) 1 patch TD DAILY [facility] Last Admin: 06/18/17 12:09 Dose: 1 patch Risperidone (Risperdal M-Tab) 0.5 mg PO BID [facility] Last Admin: 06/18/17 17:58 Dose: Not Given Trazodone HCl (Desyrel) 100 mg PO HS [facility] Last Admin: 06/18/17 22:45 Dose: Not Given - Labs Labs: 06/18/17 06:30 06/17/17 07:57 - Constitutional Appears: Well, In Acute Distress, Combative - Eye Exam Eye Exam: EOMI - Neck Exam Neck Exam: Full ROM - Respiratory Exam Respiratory Exam: NORMAL BREATHING PATTERN - Cardiovascular Exam Cardiovascular Exam: REGULAR RHYTHM, +S1, +S2 - Extremities Exam Extremities Exam: Full ROM - Neurological Exam Neurological Exam: Alert, Awake, CN II-XII Intact, Normal Gait Assessment and Plan - Assessment and Plan (Free Text) Plan: 50 yo m, PMhx/o HTN, schizophrenia paranoid admitted for delusional disorder paranoid type Assessment /Plan 1) Delusional disorder paranoid type -per psychiatrist -pt increasingly explosive 2/2 to wanting to be discharged home -c/w Risperidone, Trazodone - pending doctor to doctor review to discuss further for involuntary inpatient admission 2) Hypertension stable; had an episode of htn 2/2 agression. will monitor; pt denies OSMAN, sob, cp 3) Hypertriglyceridemia -Lipid profile: Triglycerides 1063-->420 Col 232-->185 -High risk of Acute Pancreatitis. - Start Gemfibrozil 600 mg BID 30 min before breakfast, 30 min before dinner. pt has been refusing meds -(does not interact with rest of medications. renal function normal.) 4) DVT Prophylaxis -Patient able to ambulate in the unit.
[2017-06-19] MEDS: Risperidone M tab 0.5MG PO SCH ×2 (10:41→17:52)
[2017-06-19 17:21] VITALS: BP 153/90; PULSE 93; RESP 20; TEMP 97.1
--- NOTE | 2017-06-20 16:24 | PCM.PYCHDC ---
Mental Status Examination - Mental Status Examination Orientation: Person, Place Mood: Anxious Affect: Constricted Attention: WNL Concentration: WNL Association: WNL Fund of Knowledge: WNL Formal Thought Process: Circumstantial Description of patient's judgement and insight: impaired insight into illness and need for treatment Psychotic Thoughts and Behaviors: pt presenting with paranoid delusions towards his neighbours Suicidal Ideation: No Current Homicidal Ideation?: No Discharge Summary - Discharge Note Reason for Hospitalization: pt with previous diagnosis of delusional disorder paranoid type and asperger , last hospitalized in 2012 , reportedly non compliant with medications and follow up pt presented to ER stating that he is requesting admission as he is exhausted not sleeping for at least four days due to conflict with his neighbours, pt reported that this has been an on going situation on evaluation pt guarded with disorganized thought process, denied S/H I denied perceptual disturbances collateral information obtained in ER c iron worker contacted patient friend for collateral information, Mr Mayfield was guarded and didn't want to be specific. Mr. Mayfield stated that patient need to be seen by a psychiatrist, confirmed that patient have major problems with his neighbors, he spoke with patient a few days ago, as per Mr. Mayfield patient don't have a history of suicidal ideations. Consultations:: List each consultation separately and include: 1. Reason for request. 2. Findings. 3. Follow-up Summary of Hospital Course include:: 1. Description of specific treatment plan utilized for patients during their course of treatmen. 2. Summarize the time- course for resolution of acute symptoms and/or regressed behaviors. 3. Describe issues identified and worked on during hospitalization. 4. Describe medication utilized. 5. Describe medical problems identified and treated. 6. Reassessment of suicide risk Summary of Hospital Course: pt on evaluation loud angry threatening verbally and physically banging on the wall demanding to be discharged in the moment, pt yelling in the hallway, verbally abusive towards staff, pt floridaly paranoid and presenting with poor impulse control , explosive and unable to control his anger pt continues to be paranoid expressing anger and frustration towards his neighbours sstating they are the reason he is confined here and that they have induced his posttraumatic symptoms at the current mental status patient is definitely danger to others, and possibly to self As per pt outpatient treatment team pt has not attended treatment for about two months and has been decompensating\ pt at current mental staus completely refusing medications and treatment could be danger to self or others, would benifit from inpatient involuntary admission for stabilization [facility] accepted the pt for involuntary admission for further stabilization - Final Diagnosis (DSM 5) Condition upon Discharge: GOOD DSM 5: delusional disorder paranoid type Disposition: DISCHARGE TO PSYCH HOSPITAL Follow-up Treatment Plan: pt has no insight into his illness requesting to be discharged and refusing his medications pt is angry threatening irritable explosive pt will be referred for rescreening for involuntary admission for further stabilization, he was declined by screening services yesterday will do doctor to doctor review to further diiscuss need for involuntary admission for patient
== END 2017-06-19 23:50 | DRG 885 ==
LOC: H.ER 07:04 → H.ERHOLD 09:33 → H.PSYCH 12:18
PROVIDERS: ADMIT Psychiatry & Neurology Psychiatry; ATTEND Psychiatry & Neurology Psychiatry
PROC: GZHZZZZ Group Psychotherapy (ICD-10-PCS; principal; 2017-06-17)
PROC: GZ58ZZZ Individual Psychotherapy, Cognitive-Behavioral (ICD-10-PCS; 2017-06-17)
DX: F20.0 Paranoid schizophrenia (principal); Z91.14 Patient's other noncompliance with medication regimen; E78.1 Pure hyperglyceridemia; F10.10 Alcohol abuse, uncomplicated; F43.10 Post-traumatic stress disorder, unspecified; F84.0 Autistic disorder; I10 Essential (primary) hypertension; F41.9 Anxiety disorder, unspecified; G47.00 Insomnia, unspecified; F17.210 Nicotine dependence, cigarettes, uncomplicated; Z79.82 Long term (current) use of aspirin